=== PATIENT | female | born 1980 | race Caucasian/White ===

== ENCOUNTER 2018-09-11 13:50 | Emergency (ER) | payer BC ==
[~2018-09-11] VITALS: Ht 160 cm; Wt 75.0 kg
[2018-09-11] MEDS ORDERED: ACETAMINOPHEN 325MG TABLET PO ONE (15:15)
[2018-09-11] MEDS ORDERED: LIDOCAINE HCL/PF 1% 10 MG/ML 5ML VIAL IJ ONE (15:15)
[2018-09-11 17:50] VITALS: BP 123/64
== END 2018-09-11 17:55 | disposition home or self-care (01) ==
LOC: ER 13:50
DX: S60.455A Superficial foreign body of left ring finger, initial encounter (principal); X58.XXXA Exposure to other specified factors, initial encounter; Y93.9 Activity, unspecified; Y92.9 Unspecified place or not applicable
CPT/HCPCS: 99284; J3490; Z7610